=== PATIENT | male | born 1995 | race Caucasian/White ===

== ENCOUNTER 2017-02-19 21:23 | Emergency (ER) | payer OTHER ==
[~2017-02-19] VITALS: Ht 167.6 cm; Wt 65.8 kg
--- NOTE | 2017-02-19 23:00 | NUR ---
CALLED PT IN [place], NO REPONSE
--- NOTE | 2017-02-19 23:56 | NUR ---
CALLED PT IN [place], NO REPONSE
== END 2017-02-20 00:03 | disposition left against medical advice (07) ==
LOC: ER 21:28
DX: Z53.21 Procedure and treatment not carried out due to patient leaving prior to being seen by health care provider (principal)
CPT/HCPCS: A4606